=== PATIENT | male | born 1995 | race Caucasian/White ===

== ENCOUNTER 2017-02-10 10:49 | Emergency (ER) | payer SELFPAY ==
[~2017-02-10] VITALS: Ht 172.7 cm; Wt 61.0 kg
[2017-02-10] MEDS ORDERED: KETOROLAC 30MG/ML VIAL IM ONE (12:15)
[2017-02-10] MEDS ORDERED: LIDOCAINE HCL 1%/EPI 1:200,000 30 ML VIAL MC ONE (14:45)
[2017-02-10] MEDS ORDERED: HYDROCODONE/ACETAMINOPHEN 5/325MG TABLET PO ONE (14:45)
[2017-02-10] MEDS ORDERED: BACITRACIN ZINC OINT UDPKT TOP ONE (14:45)
[2017-02-10 16:30] VITALS: BP 116/61
== END 2017-02-10 16:42 | disposition home or self-care (01) ==
LOC: ER 10:49
DX: S81.812A Laceration without foreign body, left lower leg, initial encounter (principal); W26.8XXA Contact with other sharp object(s), not elsewhere classified, initial encounter; Y93.39 Activity, other involving climbing, rappelling and jumping off; Y92.89 Other specified places as the place of occurrence of the external cause
CPT/HCPCS: 12001; 73552; 96372; 99284; J1885; Z7610